=== PATIENT | female | born 1990 | race American Indian/Alaskan Native ===

== ENCOUNTER 2018-07-08 20:07 | Emergency (ER) | payer OTHER ==
[2018-07-08 20:33] VITALS: BP 132/87
--- NOTE | 2018-07-08 20:35 | Emergency Department Report ---
Blank Doc - Documentation Documentation: This is a 28-year-old female that presents with right leg pain and redness with swelling. This initial assessment/diagnostic orders/clinical plan/treatment(s) is/are subject to change based on patient's health status, clinical progression and re- assessment by fellow clinical providers in the ED. Further treatment and workup at subsequent clinical providers discretion. Patient/guardians urged not to elope from the ED as their condition may be serious if not clinically assessed and managed. Initial orders include: 1- Patient sent to [facility] for further evaluation and treatment 2- labs 3- Doppler US
[2018-07-08 20:58] LABS: Basophils % (Auto) 0.8 % (0.0-1.8); Eosinophils # (Auto) 0.1 K/mm3 (0.0-0.4); Eosinophils % (Auto) 1.8 % (0.0-4.3); Hematocrit 35.1 % (30.3-42.9); Hemoglobin 11.9 gm/dl (10.1-14.3); Lymphocytes # (Auto) 1.8 K/mm3 (1.2-5.4); Lymphocytes % (Auto) 31.2 % (13.4-35.0); Mean Corpuscular HGB Conc 34 % (30-34); Mean Corpuscular Volume 89 fl (79-97); Monocytes # (Auto) 0.7 K/mm3 (0.0-0.8); Monocytes % (Auto) 11.4 % (0.0-7.3); Platelet Count 340 K/mm3 (140-440); Red Blood Count 3.95 M/mm3 (3.65-5.03); Red Cell Distribution Width 13.8 % (13.2-15.2)
[2018-07-08 21:19] LABS: BUN/Creatinine Ratio 10; Blood Urea Nitrogen 10 mg/dL (7-17); Calcium 9.2 mg/dL (8.4-10.2); Hemolysis Index 2
[2018-07-09] MEDS ORDERED: CLEOCIN IM STA (02:07)
--- NOTE | 2018-07-09 03:45 | Emergency Department Report ---
ED General Adult HPI - General Chief complaint: Extremity Injury, Lower Stated complaint: RIGHT LEG PAIN Time Seen by Provider: 07/08/18 20:33 Source: patient Mode of arrival: Ambulatory Limitations: No Limitations - History of Present Illness Initial comments: 28-year-old obese female who denies any significant past medical history position was department complaining of a few day history of atraumatic right lower extremity pain and swelling that has been fluctuating since the onset. States that she feels that the swelling is slightly slightly improved, but it tends to respond when she moves her leg up while at home relaxing. The discomfort is worse in the morning when he first starts walking. She denies any cramps. Patient to the calf. No previous history of any DVTs. No chest pain or palpitations. Shortness of breath. Severity scale (0 -10): 10 Quality: dull Improves with: other Worsens with: medication, movement Associated Symptoms: denies: cough, diaphoresis, loss of appetite, malaise, n ausea/vomiting, shortness of breath, syncope - Related Data Previous Rx's Medication Instructions Recorded Last Taken Type Clindamycin [Clindamycin CAP] 300 mg PO Q8HR #21 capsule 07/09/18 Unknown Rx traMADol [Ultram] 50 mg PO Q6HR PRN #14 tablet 07/09/18 Unknown Rx Allergies Allergy/AdvReac Type Severity Reaction Status Date / Time coconut Allergy Swelling Verified 07/08/18 20:36 ED Review of Systems ROS: Stated complaint: RIGHT LEG PAIN Other details as noted in HPI Constitutional: denies: chills, fever Eyes: denies: eye pain, eye discharge, vision change ENT: denies: ear pain, throat pain Respiratory: denies: cough, shortness of breath, wheezing Cardiovascular: denies: chest pain, palpitations, dyspnea on exertion Endocrine: no symptoms reported Gastrointestinal: denies: abdominal pain, nausea, diarrhea Genitourinary: denies: urgency, dysuria, discharge Musculoskeletal: denies: back pain, joint swelling, arthralgia Skin: denies: rash, lesions Neurological: denies: headache, weakness, paresthesias Psychiatric: denies: anxiety, depression Hematological/Lymphatic: denies: easy bleeding, easy bruising ED Past Medical Hx - Past Medical History Previous Medical History?: No - Surgical History Past Surgical History?: No - Social History Smoking Status: Current Every Day Smoker Substance Use Type: None - Medications Home Medications: Home Medications Medication Instructions Recorded Confirmed Last Taken Type Clindamycin [Clindamycin CAP] 300 mg PO Q8HR #21 capsule 07/09/18 Unknown Rx traMADol [Ultram] 50 mg PO Q6HR PRN #14 tablet 07/09/18 Unknown Rx ED Physical Exam - General Limitations: No Limitations General appearance: alert, in no apparent distress - Head Head exam: Present: atraumatic, normocephalic - Eye Eye exam: Present: normal appearance - ENT ENT exam: Present: mucous membranes moist, TM's normal bilaterally - Neck Neck exam: Present: normal inspection, full ROM - Respiratory Respiratory exam: Present: normal lung sounds bilaterally. Absent: respiratory distress, stridor, chest wall tenderness, accessory muscle use - Cardiovascular Cardiovascular Exam: Present: regular rate, normal rhythm. Absent: systolic murmur, diastolic murmur, rubs, gallop - GI/Abdominal GI/Abdominal exam: Present: soft, normal bowel sounds - Extremities Exam Extremities exam: Present: normal inspection, joint swelling - Expanded Lower Extremity Exam Right Lower Leg exam: Present: tenderness, swelling, erythema. Absent: deformity, cre pidus, dislocation Foot/Toe exam: Absent: full ROM, tenderness, swelling, laceration, dislocation, erythema, puncture wound, foreign body, tenderness at base of 5th metatarsal Neuro vascular tendon exam: Present: no vascular compromise 1 - Cellulitis noted 2 - Pain and swelling. Possible Homans sign. There is some symptoms, come to the popliteal region as well. Pulses are 2+ to the dorsalis pedis, posterior tibialis - Back Exam Back exam: Present: normal inspection, full ROM. Absent: CVA tenderness (R), CVA tenderness (L) - Neurological Exam Neurological exam: Present: alert, oriented X3, CN II-XII intact, motor sensory deficit - Psychiatric Psychiatric exam: Present: normal affect, normal mood - Skin Skin exam: Present: warm, dry, intact, normal color. Absent: rash ED Course Vital Signs 07/08/18 20:31 Temperature 98.0 F Pulse Rate 104 H Respiratory 16 Rate Blood Pressure 132/87 O2 Sat by Pulse 99 Oximetry ED Medical Decision Making - Lab Data Result diagrams: 07/08/18 20:40 07/08/18 20:40 - Medical Decision Making Morbidly obese F [place] female with cellulitis of the right lower extremity relatively normal labs with the exception of elevated d-dimer. Plan is to have her to return tomorrow for a venous Doppler study as it was ordered earlier while she was in the ER during the screening process of trauma however still not obtained. Also started ON CLINDAMYCIN FOR THE CELLULITIS AND WILL FOLLOW THE PROGRESS OF HER TO 3 DAYS with her primary care doctor. Critical care attestation.: If time is entered above; I have spent that time in minutes in the direct care of this critically ill patient, excluding procedure time. ED Disposition Clinical Impression: Leg pain, right, Elevated d-dimer, Cellulitis of right lower limb Disposition: DC-01 TO HOME OR SELFCARE Is pt being admited?: No Does the pt Need Aspirin: No Condition: Stable Instructions: Cellulitis (ED), Leg Edema (ED) Prescriptions: Clindamycin [Clindamycin CAP] 300 mg PO Q8HR #21 capsule traMADol [Ultram] 50 mg PO Q6HR PRN #14 tablet PRN Reason: Pain Referrals: MANDI MOORE MD [Primary Care Provider] - 3-5 Days
[2018-07-09] MEDS ORDERED: ULTRAM PO ONE (04:14)
[2018-07-09] MEDS ORDERED: ULTRAM ONE (04:17)
== END 2018-07-09 03:30 | disposition home or self-care (01) ==
LOC: ED 20:07
DX: L03.115 Cellulitis of right lower limb (principal); R79.1 Abnormal coagulation profile; F17.200 Nicotine dependence, unspecified, uncomplicated
CPT/HCPCS: 36415; 80048; 83880; 85025; 85379; 96372